=== PATIENT | female | born 1950 | race Caucasian/White ===

== ENCOUNTER → 2020-09-29 09:38 | Outpatient (CLI) | payer MEDICARE, BC ==
[2009-11-09 06:31] VITALS: BMI 26.7
--- NOTE | ~2020-09-29 | ST ---
PATIENT:BRITTNI SANCHES MEDICAL RECORD: [id number] SEX: F LOCATION:[facility] ORDER #: ADMISSION DATE: 09/29/20 AGE OF PATIENT: 70 REFERRING PHYSICIAN: INTERPRETING PHYSICIAN: AGUSTÍN DERAS MD DATE OF SERVICE: 09/29/2020 NUCLEAR STRESS TEST GATED: Gated is normal. Normal wall motion and normal wall thickening. Calculated EF 83%. SPECT IMAGING: SPECT imaging was performed. 1. Short axis view: Short axis view shows good uptake along the anterior wall, lateral wall, and inferior wall. 2. Horizontal axis: Horizontal axis confirms good uptake along the anterior wall and inferior wall. 3. Vertical axis: Vertical axis shows good uptake along the lateral wall and septum. FINAL IMPRESSION: 1. Normal gated. Normal wall motion, EF 83%. 2. Normal SPECT imaging. FINAL IMPRESSION: The scan is felt low risk for any significant myocardial ischemia or previous myocardial infarction. LV function remains normal. Continue risk factor modification is recommended. 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
== END | disposition home or self-care (01) ==
LOC: D.HCCARDIO 09-17 11:00 → D.HCCECHO 09-17 13:30
PROVIDERS: ATTEND Internal Medicine Interventional Cardiology
DX: I10 Essential (primary) hypertension (principal); R07.89 Other chest pain